=== PATIENT | male | born 1990 | race Caucasian/White ===

== ENCOUNTER 2023-06-12 12:40 | Emergency (ER) | payer OTHER ==
[~2023-06-12] VITALS: Ht 185.4 cm; Wt 86.2 kg
[2023-06-12 13:31] LABS: BASOPHILS ABSOLUTE AUTO 0.04 K/mm3 (0.00-0.23); BASOPHILS PERCENT AUTO 1 % (0-2); EOSINOPHILS ABSOLUTE AUTO 0.03 K/mm3 (0.00-0.68); EOSINOPHILS PERCENT AUTO 0 % (0-6); Hematocrit 47.2 % (37.0-53.0); Hemoglobin 16.4 g/dL (13.5-17.5); IMMATURE GRAN ABSOLUTE AUTO 0.02 K/mm3 (0.00-0.10); IMMATURE GRAN PERCENT AUTO 0 % (0-1); LYMPHOCYTES ABSOLUTE AUTO 1.85 K/mm3 (0.84-5.20); LYMPHOCYTES PERCENT AUTO 24 % (21-46); MONOCYTES ABSOLUTE AUTO 0.37 K/mm3 (0.16-1.47); MONOCYTES PERCENT AUTO 5 % (4-13); Mean Corpuscular HGB 29.1 pg (26.0-34.0); Mean Corpuscular HGB Conc 34.7 g/dL (31.5-36.5); Mean Corpuscular Volume 84 fL (80-100); Mean Platelet Volume 10.4 fL (9.1-12.4); NEUTROPHILS ABSOLUTE AUTO 5.28 K/mm3 (1.96-9.15); NEUTROPHILS PERCENT AUTO 70 % (41-73); Platelet Count 327 K/mm3 (150-400); RDW Coefficient Variation 12.4 % (11.7-14.2); RDW Standard Deviation 37.2 fL (35.1-46.3); Red Blood Cell Count 5.64 M/mm3 (4.30-5.90); White Blood Cell Count 7.59 K/mm3 (4.00-11.30)
[2023-06-12 14:01] LABS: Albumin, Blood 4.9 g/dL (3.4-5.0); Albumin/Globulin Ratio 1.3 (0.8-1.8); Bilirubin, Total 0.4 mg/dL (0.1-1.0); Bun/Creatinine Ratio 11.7 (12.0-20.0); Calcium, Blood 9.5 mg/dL (8.5-10.1); Creatinine, Blood 1.03 mg/dL (0.60-1.20); Globulin, Blood 3.8 g/dL (2.2-4.0); Potassium, Blood 3.3 mmol/L (3.5-5.5); Total Protein, Blood 8.7 g/dL (6.4-8.2)
[2023-06-12 15:07] VITALS: BP 143/85
[2023-06-12] MEDS ORDERED: OMEP20ER PO (16:35)
== END 2023-06-12 16:44 | disposition home or self-care (01) ==
LOC: ER 12:40
PROVIDERS: Physician Assistant
DX: R10.13 Epigastric pain (principal); I45.10 Unspecified right bundle-branch block
CPT/HCPCS: 74177; 80053; 82947; 83690; 85025; 93005; 93010; 99284-25; Q9967

== ENCOUNTER 2023-06-30 18:13 | Emergency (ER) | payer OTHER ==
[~2023-06-30] VITALS: Ht 177.8 cm; Wt 68.0 kg
[~2023-06-30 18:13] MED LIST: OMEP20ER PO
[2023-06-30 18:22] VITALS: BP 140/97
[2023-06-30] MEDS ORDERED: Percocet 5-3251 EACH PO (19:29)
[2023-06-30] MEDS ORDERED: ONDA4ODT SL (19:29)
[2023-06-30] MEDS ORDERED: Cephalexin500 MG PO (19:29)
== END 2023-06-30 20:50 | disposition home or self-care (01) ==
LOC: ER 18:13
DX: S92.422B Displaced fracture of distal phalanx of left great toe, initial encounter for open fracture (principal); S92.532B Displaced fracture of distal phalanx of left lesser toe(s), initial encounter for open fracture; W22.8XXA Striking against or struck by other objects, initial encounter; Z79.899 Other long term (current) drug therapy
CPT/HCPCS: 11740; 73630; 90471; 90715; 96372-59; 99283-25; A9270; J1885